=== PATIENT | male | born 1955 | race Caucasian/White ===

== ENCOUNTER 2021-01-31 16:18 | Observation (INO) ==
[2021-01-31] MEDS ORDERED: Melatonin 3 MG TABLET PO PRN (21:34)
[2021-01-31] MEDS ORDERED: Naloxone 0.4 MG/ML INJ IVP PRN (21:34)
[2021-01-31] MEDS ORDERED: Acetaminophen 325 MG TABLET PO PRN (21:34)
[2021-01-31] MEDS ORDERED: Ondansetron 4 MG/2 ML VIAL IVP PRN (21:34)
[2021-01-31 22:33] LABS: Basophils % 0.5 %; Eosinophils # 0.2 K/mcL (0.0-0.6); Eosinophils % 3.3 %; Hematocrit 28.7 % (37.5-50.1); Hemoglobin 9.4 g/dL (12.9-16.9); Immature Granulocytes % 0.3 % (0-4); Lymphocytes # 1.9 K/mcL (0.6-4.6); Lymphocytes % 25.5 %; Mean Corpuscular HGB Conc 32.8 g/dL (31.6-35.5); Mean Corpuscular Volume 94.7 fL (83.0-100.0); Mean Platelet Volume 9.6 fL (9.4-12.4); Monocytes # 0.7 K/mcL (0.0-1.3); Monocytes % 10.1 %; Neutrophils # 4.4 K/mcL (1.6-8.9); Platelet Count 195 K/mcL (140-400); Red Blood Count 3.03 M/mcL (4.19-5.50); Red Cell Distribution Width 13.4 % (11.5-14.5); Segmented Neutrophils % 60.3 %; White Blood Count 7.3 K/mcL (4.3-11.1)
[2021-01-31] MEDS ORDERED: *HR* Dextrose 50 % in Water (Vial) 50 ML VIAL IVP PRN (23:02)
[2021-01-31] MEDS ORDERED: Dextrose Gel 15 GM/37.5 ML TUBE PO PRN ×2 (23:02)
[2021-01-31] MEDS ORDERED: D5% in Water 1,000 ML IVC PRN (23:02)
[2021-02-01] MEDS: Insulin LISPRO 300 UNITS/3 ML VIAL SUBQ SCH ×5 (00:33→20:00)
[2021-02-01] MEDS: Nicotine 14 MG PATCH.TD24 TD SCH ×2 (00:34→09:50)
[2021-02-01 02:54] LABS: INR 1.1; Prothrombin Time 12.9 Seconds (9.4-12.1)
[2021-02-01 03:00] LABS: Alanine Aminotransferase 10 Units/L (7-52); Albumin 3.4 g/dL (3.5-5.7); Albumin/Globulin Ratio 1.9 (1.1-2.2); Alkaline Phosphatase 99 Units/L (34-104); Aspartate Amino Transferase 14 Units/L (13-39); BUN/Creatinine Ratio 22 (6-26); Blood Urea Nitrogen 16 mg/dL (8-23); Calcium 8.6 mg/dL (8.6-10.3); Carbon Dioxide 26 mEq/L (23-29); Chloride 106 mEq/L (98-107); Globulin 1.8 g/dL (2.4-3.5); Glucose 93 mg/dL (70-105); Magnesium 1.8 mg/dL (1.6-2.6); Osmolality,Calculated 289 (280-300); Phosphorous 3.5 mg/dL (2.7-4.5); Potassium 3.7 mEq/L (3.5-5.1); Sodium 139 mEq/L (136-145); Total Protein 5.2 g/dL (6.4-8.9); eGFR For African Americans > 60 (> 60); eGFR For Non-African Americans > 60 (> 60)
[2021-02-01] MEDS ORDERED: Ipratropium/Albuterol Neb 3 ML IH PRN (12:15)
[2021-02-01 12:28] LABS: Hematocrit 28.5 % (37.5-50.1); Hemoglobin 9.7 g/dL (12.9-16.9)
[2021-02-01] MEDS: Artificial Tears SOLN 15 ML BOTTLE BOTH EYES SCH ×2 (17:10→20:01)
[2021-02-01] MEDS: hydrOXYzine pamoate 25 MG CAPSULE PO SCH (19:57)
[2021-02-01] MEDS ORDERED: cloZAPine 100 MG TABLET PO SCH (21:00)
[2021-02-02] MEDS: hydrOXYzine pamoate 25 MG CAPSULE PO SCH (08:02)
[2021-02-02] MEDS: Nicotine 14 MG PATCH.TD24 TD SCH (08:03)
[2021-02-02] MEDS: Insulin LISPRO 300 UNITS/3 ML VIAL SUBQ SCH ×2 (08:03→11:05)
[2021-02-02] MEDS: Artificial Tears SOLN 15 ML BOTTLE BOTH EYES SCH ×2 (08:04→13:39)
[2021-02-02] MEDS ORDERED: cloZAPine 100 MG TABLET PO SCH (09:00)
[2021-02-02] MEDS ORDERED: atenoloL 25 MG TABLET PO SCH (09:00)
[2021-02-02 09:18] LABS: Hematocrit 30.6 % (37.5-50.1); Hemoglobin 10.5 g/dL (12.9-16.9)
[2021-02-02 10:40] VITALS: BP 150/90
[2021-02-02] MEDS ORDERED: Melatonin 3 MG TABLET PO SCH (21:00)
== END 2021-02-02 15:18 | disposition home or self-care (01) ==
LOC: 2ANU → SUATTDRO 18:04 → 2ANU 02-01 13:55
PROVIDERS: ADMIT Internal Medicine; ATTEND General Practice